=== PATIENT | female | born 1990 | race African-American/Black ===

== ENCOUNTER 2021-01-03 19:31 | Emergency (ER) | payer SELFPAY ==
[~2021-01-03] VITALS: Ht 165.1 cm; Wt 67.3 kg
--- NOTE | 2021-01-03 19:43 | PHYS DOC ---
Past History Past Medical History: Anemia Past Medical History G4, T3 Vaginal General Adult EDM: Chief Complaint: VOMITING IN HPI: HPI: ".. I should not be .. I was on the depo... but my test was positive.. I ve not had a US yet.. we are estimating .. I some where near 9 and 1/2 months... this will be my fourth ... the problems is that I am puking every thing ... even waterl... I take a .. [facility] ...".. " This baby is causing me to vomiting constantly,,,," Patient is a 30 year old female who presents with above hx and complaints estimated of 9-1/2 weeks while on Depo. This is patient's fourth . She had 3 other pregnancies by vaginal. No history of STDs. Lifetime sex partners 6. No history of abuse. Has not completed an ultrasound as yet. Patient is on prenatals. Patient denies any immunosuppression. No recent travel. No specific ill contacts. No history of bad food intake. No hx of trauma Patient does have some abdomen pain in the left lower quadrant. Patient feels she is becoming dehydrated because she has not urinated today. Review of Systems: Review of Systems: Constitutional: Denies fever or chills Eyes: Denies change in visual acuity HENT: Denies nasal congestion or sore throat Respiratory: Denies cough or shortness of breath Cardiovascular: Denies chest pain or edema GI: Complains of abdominal pain, nausea, vomiting,. Denies bloody stools or diarrhea. : Complains to drive to urinate Musculoskeletal: Denies back pain or joint pain Integument: Denies rash Neurologic: Denies headache, focal weakness or sensory changes Endocrine: Denies polyuria or polydipsia Lymphatic: Denies swollen glands Psychiatric: Denies depression or anxiety Family History: Family History: Hypertension and diabetes Current Medications: Current Meds: See nursing for home medications Allergies: Allergies: No known drug allergies Physical Exam: PE: Constitutional: Well developed, well nourished, moderate acute distress, non- toxic appearance. [] HENT: Normocephalic, atraumatic, bilateral external ears normal, oropharynx dry, no oral exudates, nose normal. [] Eyes: PERRLA, EOMI, conjunctiva normal, no discharge. [] Neck: Normal range of motion, no tenderness, supple, no stridor. [] Cardiovascular: Tachycardia heart rate regular rhythm, no murmur [] Lungs & Thorax: Bilateral breath sounds equal at apex on auscultation [] Abdomen: Bowel sounds normal, soft, left lower abdomen tenderness, no masses, no pulsatile masses. No vaginal bleeding appreciated. Gravid. No rebound. Skin: Warm, dry, no erythema, no rash. [] Back: No tenderness, no CVA tenderness. [] Extremities: No tenderness, no cyanosis, no clubbing, ROM intact, no edema. No psoas. Neurologic: Alert and oriented X 3, normal motor function, normal sensory function, no focal deficits noted. [] DTRs +2 patella and brachial. Psychologic: Affect anxious judgement normal, mood normal. [] EKG: EKG: [] Radiology/Procedures: Radiology/Procedures: [][place] [address] IMAGING REPORT Signed PATIENT: DIAMOND SUAREZ ACCOUNT: [id number] : 1990 LOCATION: ER AGE: 30 SEX: F EXAM STATUS: REG ER ORD. PHYSICIAN: LE PRITCHETT MD REASON: -lower abd pain PROCEDURE: OB <14 WKS Exam: Ultrasound OB less than 14 weeks Indication: , lower abdominal pain Technique: Real-time grayscale and color Doppler images of the pelvis were obtained by the department freezer unloader. Comparisons: None FINDINGS: Uterus measures 9.4 x 6.8 x 5.8 cm. Within the endometrium there is a gestational sac with yolk sac and pole. pole measures 2.2 cm corresponding to 8 weeks 6 days gestation. heart rate is measured at 153 bpm. Estimated due date 08/09/2021 Right ovary is not identified, secondary to overlying bowel. Left ovary measures 2.3 x 2.7 x 1.7 cm. *Flow identified within the left ovary. No free fluid identified in the pelvis. IMPRESSION: 1. Single live intrauterine gestation measuring 8 weeks 6 days by current ultrasound. 2. Dedicated survey is recommended at 18-20 weeks gestation. Electronically signed by: Matilda Chavez MD (01/03/2021 10:36 PM) [facility] DICTATED AND SIGNED BY: MATILDA CHAVEZ MD DATE: 01/03/212232 CC: LE PRITCHETT MD; NON,STAFF ~MTH0 0 Heart Score: C/O Chest Pain: N/A Risk Factors: Risk Factors: DM, Current or recent (<one month) smoker, HTN, HLP, family history of CAD, obesity. Risk Scores: Score 0 - 3: 2.5% MACE over next 6 weeks - Discharge Home Score 4 - 6: 20.3% MACE over next 6 weeks - Admit for Clinical Observation Score 7 - 10: 72.7% MACE over next 6 weeks - Early Invasive Strategies Course & Med Decision Making: Course & Med Decision Making Pertinent Labs and Imaging studies reviewed. (See chart for details) Patient reports marked improvement in overall symptoms and discomfort after liter of fluid and Zofran. Patient to push clear fluids. Clear fluid diet for the next couple days. Take vitamins. Keep follow-up at as planned. Take ultrasound disc with you on follow-up. May take Zofran 4 mg up to 4 times a day for active vomiting. Encourage patient if further problems with this to follow at where she plans to deliver for continuity of care. Review ED work-up with primary care Impression: 1. Hyperemesis gravidarum 2. Gravid 4, term 3 all vaginal without complications 3. Intrauterine 8 weeks 6 days 4. EDC= 08/09/2021 5. Anemia - 11.1 6. FHR= 153 7. BHCG 95,888 8. Maternal blood type is O+ [] Dragon Disclaimer: Dragon Disclaimer: This electronic medical record was generated, in whole or in part, using a voice recognition dictation system. Departure Departure: Impression: Primary Impression: Hyperemesis gravidarum Disposition: 01 DC HOME SELF CARE/HOMELESS Condition: GUARDED Referrals: NON,STAFF (PCP) Scripts Ondansetron Hcl (ZOFRAN) 4 Mg Tablet 4 MG PO QIDPRN PRN for n/V, #30 TAB Prov: LE PRITCHETT MD 01/03/21 Paulie Disclaimer This chart was dictated in whole or in part using Voice Recognition software in a busy, high-work load, and often noisy Emergency Department environment. It may contain unintended and wholly unrecognized errors or omissions. LE PRITCHETT MD Jan 03, 2021 19:43
[2021-01-03 19:45] VITALS: BP 136/76
[2021-01-03] MEDS ORDERED: ONDANSETRON PF 4 MG/2 ML VIAL. IVP ONE (19:45)
[2021-01-03] MEDS ORDERED: IV RINGERS SOLUTION,LACTATED 1,000 ML IV SCH (19:45)
[2021-01-03] MEDS ORDERED: FAMOTIDINE 20 MG/2 ML VIAL IVP ONE (19:45)
[2021-01-03 20:24] LABS: BASO # 0.1 x10^3/uL (0.0-0.2); BASO % 1 % (0-3); EOS % 1 % (0-3); HEMATOCRIT 32.7 % (36.0-47.0); HEMOGLOBIN 11.1 g/dL (12.0-15.5); LYMPH # 2.5 x10^3/uL (1.0-4.8); LYMPH % 32 % (24-48); MEAN CORPUSCULAR HEMOGLOBIN 27 pg (25-35); MEAN CORPUSCULAR HGB CONC 34 g/dL (31-37); MEAN CORPUSCULAR VOLUME 81 fL (79-100); MONO # 0.6 x10^3/uL (0.0-1.1); MONO % 8 % (0-9); NEUT # 4.5 x10^3uL (1.8-7.7); NEUT % 59 % (31-73); PLATELET COUNT 255 x10^3/uL (140-400); RED BLOOD COUNT 4.05 x10^6/uL (3.50-5.40); RED CELL DISTRIBUTION WIDTH 13.7 % (11.5-14.5); WHITE BLOOD COUNT 7.6 x10^3/uL (4.0-11.0)
[2021-01-03 20:30] LABS: CALCIUM 9.1 mg/dL (8.5-10.1); CREATININE 0.9 mg/dL (0.6-1.0); GFR 88.4; POTASSIUM 4.1 mmol/L (3.5-5.1)
[2021-01-03 20:36] LABS: ALBUMIN 3.6 g/dL (3.4-5.0); DIRECT BILIRUBIN 0.1 mg/dL (0.0-0.2); TOTAL BILIRUBIN 0.1 mg/dL (0.2-1.0); TOTAL PROTEIN 6.6 g/dL (6.4-8.2)
[2021-01-03] MEDS ORDERED: PREN1TAB86 PO (20:43)
[2021-01-03 21:45] LABS: BARBITURATES NEG (NEG); BENZODIAZEPINES NEG (NEG); CANNABINOIDS NEG (NEG); COCAINE NEG (NEG); METHADONE NEG (NEG); OPIATES NEG (NEG); PHENCYCLIDINE NEG (NEG)
[2021-01-03] MEDS ORDERED: RINGERS LACTATED IV ONE (21:45)
[2021-01-03 21:46] LABS: AMPHETAMINE/METHAMPHETAMINE NEG (NEG)
[2021-01-03 21:53] LABS: AMORPHOUS SEDIMENT,UR PRESENT /HPF; BACTERIA,URINE 0 /HPF (0-FEW); BILIRUBIN,URINE NEG (NEG); CLARITY,URINE CLEAR; COLOR,URINE YELLOW; GLUCOSE,URINE NEG (NEG); NITRITE,URINE NEG (NEG); RBC,URINE 0 /HPF (0-2); SQUAMOUS EPITHELIAL CELL,UR OCC /LPF; UROBILINOGEN,URINE 0.2 mg/dL (0.2 mg/dL); WBC,URINE 0 /HPF (0-4)
[2021-01-03] MEDS ORDERED: ONDA4TAB7 PO (22:32)
--- NOTE | 2021-01-03 22:38 | RAD ---
Exam: Ultrasound OB less than 14 weeks Indication: , lower abdominal pain Technique: Real-time grayscale and color Doppler images of the pelvis were obtained by the department imaging tech. Comparisons: None FINDINGS: Uterus measures 9.4 x 6.8 x 5.8 cm. Within the endometrium there is a gestational sac with yolk sac a nd pole. pole measures 2.2 cm corresponding to 8 weeks 6 days gestation. heart rate is measured at 153 bpm. Estimated due date 08/09/2021 Right ovary is not identified, secondary to overlying bowel. Left ovary measures 2.3 x 2.7 x 1.7 cm. *Flow identified within the left ovary. No free fluid identified in the pelvis. IMPRESSION: 1. Single live intrauterine gestation measuring 8 weeks 6 days by current ultrasound. 2. Dedicated survey is recommended at 18-20 weeks gestation. Electronically signed by: Matilda Gong MD (01/03/2021 10:36 PM) [facility]
== END 2021-01-03 22:54 | disposition home or self-care (01) ==
LOC: ER 19:31
DX: O21.0 Mild hyperemesis gravidarum (principal); O99.011 Anemia complicating pregnancy, first trimester; Z3A.08 8 weeks gestation of pregnancy; Z86.2 Personal history of diseases of the blood and blood-forming organs and certain disorders involving the immune mechanism
CPT/HCPCS: 36415; 76801; 80048; 80076; 80307; 81001; 81025; 82150; 83690; 84702; 85025; 86850; 86900; 86901; 96361; 96374; 96375; 99284; J2405; J3490; J7120